=== PATIENT | male | born 1995 | race African-American/Black ===

== ENCOUNTER 2020-10-23 18:07 | Emergency (ER) | payer OTHER ==
[~2020-10-23] VITALS: Ht 185.4 cm; Wt 84.0 kg
[2020-10-23] MEDS ORDERED: SODIUM CHLORIDE 0.9% 1,000 ML IV ONE ×2 (18:30→18:45)
[2020-10-23] MEDS ORDERED: ADENOSINE 3 MG/ML 2ML VIAL IV ONE ×2 (18:30)
[2020-10-23] MEDS ORDERED: LORAZEPAM 2MG/ML CPJ IV ONE ×2 (18:45)
[2020-10-23 19:05] LABS: BASOPHILS % 1.6 % (0.0-2.0); EOSINOPHILS % 0.7 % (0.0-5.0); HEMATOCRIT. 43.6 % (42.0-52.0); HEMOGLOBIN. 14.9 g/dL (14.0-18.0); LYMPHOCYTES % 36.9 % (20.0-50.0); MEAN CORPUSCULAR HEMOGLOBIN 28.3 pg (28.0-32.0); MEAN CORPUSCULAR VOLUME 82.7 fL (80.0-94.0); MEAN PLATELET VOLUME 8.3 fl (7.4-10.4); MONOCYTES % 14.4 % (2.0-8.0); NEUTROPHILS % 46.4 % (40.0-76.0); PLATELET 257 x1000/uL (130-400); RED BLOOD CELL COUNT 5.27 mill/uL (4.7-6.1); RED CELL DISTRIBUTION WIDTH 13.5 % (11.6-14.6)
[2020-10-23 19:13] LABS: CHLORIDE 99 mEq/L (98-107)
[2020-10-23 19:15] LABS: INR 1.1; PROTHROMBIN TIME 11.5 sec (9.6-11.0)
[2020-10-23 19:18] LABS: ETHANOL BLOOD < 10 mg/dL
[2020-10-23 19:23] LABS: T4 FREE 1.72 ng/dL (0.76-1.46)
[2020-10-23] MEDS ORDERED: KCL 10MEQ/50ML PREMIX 50 ML IV ONE (19:45)
[2020-10-23] MEDS ORDERED: MAGNESIUM 2 G PREMIX 50 ML IV ONE (19:45)
[2020-10-23] MEDS ORDERED: POTASSIUM CHLORIDE 20MEQ TABLET SR PO ONE ×2 (19:45→21:30)
[2020-10-23 19:59] LABS: CLARITY URINE CLEAR (CLEAR); COLOR URINE YELLOW (YELLOW); KETONES URINE 1+ (NEGATIVE); LEUKOCYTE ESTERASE URINE NEGATIVE (NEGATIVE); NITRITE URINE NEGATIVE (NEGATIVE); OCCULT BLOOD URINE NEGATIVE (NEGATIVE); PH URINE 6.5 (4.5-8.0); PROTEIN URINE NEGATIVE (NEGATIVE); SPECIFIC GRAVITY URINE 1.014 (1.005-1.030)
[2020-10-23 20:29] LABS: *AMPHETAMINES SCREEN URINE PRESUMTIVE POSITIVE (NEGATIVE); *BARBITURATES SCREEN URINE NEGATIVE (NEGATIVE)
[2020-10-23 20:30] LABS: *BENZODIAZEPINES SCREEN URINE NEGATIVE (NEGATIVE); *COCAINE SCREEN URINE NEGATIVE (NEGATIVE); CANNABINOID URINE SCREEN PRESUMTIVE POSITIVE (NEGATIVE); METHADONE URINE SCREEN NEGATIVE (NEGATIVE); OPIATES URINE SCREEN NEGATIVE (NEGATIVE); PHENCYCLIDINE URINE SCREEN NEGATIVE (NEGATIVE)
[2020-10-23] MEDS ORDERED: ASPIRIN 81MG TABLET PO ONE (20:45)
[2020-10-23] MEDS ORDERED: KETOROLAC 15MG/ML VIAL IV ONE (21:30)
[2020-10-23] MEDS ORDERED: IOHEXOL-300 100 ML BOTTLE ONE (21:37)
[2020-10-23 22:25] VITALS: BP 152/87
== END 2020-10-23 22:42 | disposition short-term general hospital (02) ==
LOC: ER 18:07 → CANBEDREQ 23:16
DX: E87.6 Hypokalemia (principal); R00.0 Tachycardia, unspecified; R07.89 Other chest pain; F15.10 Other stimulant abuse, uncomplicated; R10.13 Epigastric pain; F17.200 Nicotine dependence, unspecified, uncomplicated; F12.10 Cannabis abuse, uncomplicated; V49.88XA Car occupant (driver) (passenger) injured in other specified transport accidents, initial encounter; Y93.89 Activity, other specified; Y92.89 Other specified places as the place of occurrence of the external cause; Y99.8 Other external cause status
CPT/HCPCS: 36415; 71045; 71260; 74177; 80053; 80305; 80307; 80320; 80329; 81003; 83690; 83735; 83880; 84439; 84443; 84484; 85025; 85610; 86850; 86900; 86901; 93005; 96361; 96365; 96367; 96375; 99285; J1885; J2060; J3475; J3480; J7030; Q9967; Z7610; J0153; G0480